=== PATIENT | male | born 1945 | race Caucasian/White ===

== ENCOUNTER → 2016-10-27 | Outpatient (CLI) | payer OTHER ==
[~2016-10-27] MED LIST: ASPIRIN EC81 M1; CIPROFLOXACIN500 M1 PO; FLOMAX PO; LIPITOR10 MG; METFORMIN HCL500 MG PO; PERCOCET 5-3251 EACH PO; ZESTRIL5 MG PO; ZOFRAN ODT4 MG PO
--- NOTE | ~2016-10-27 | EKG ---
[address] [address] ELECTROCARDIOGRAM REPORT Name: VINNY JETER Room #: REG [facility]#: [id number] Admission: 10/27/16 Attend Phys: Gen Alba MD Discharge: Date of : 47 Report #: [id number] THIS REPORT FOR: //name// [facility] Test Date: 2016-10-27 Test Time: 07:27:32 Pat Name: VINNY JETER Department: Room: Gender: M [employer] H[employer]: KAYLEE : 1945 Requested By: Gen Alba Order Number: [id number] MD: Malachi Felder Measurements Intervals [place] Rate: 66 P: 5 NE: 155 QRS: -4 QRSD: 99 T: 8 QT: 412 QTc: 432 Interpretive Statements Sinus rhythm Abnormal R-wave progression, early transition Probable left ventricular hypertrophy No previous ECG available for comparison Electronically Signed On 10-27-2016 9:09:35 CDT by Malachi Felder [email or web address] <ELECTRONICALLY SIGNED> By: Malachi Felder MD, [facility] 10/27/16908 0727 6 Malachi Felder MD, FACC /EPI
== END | disposition home or self-care (01) ==
LOC: LITH 05:39
DX: N20.0 Calculus of kidney (principal); Z90.49 Acquired absence of other specified parts of digestive tract